=== PATIENT | female | born 1980 | race Caucasian/White ===

== ENCOUNTER 2020-08-31 10:01 | Observation (INO) | payer OTHER, SELFPAY ==
[~2020-08-31] VITALS: Ht 162.6 cm; Wt 93.4 kg
[2020-08-31 10:01] VITALS: BP_SYST 137
--- NOTE | 2020-08-31 10:01 | NUR ---
BROUGHT IN BY [facility] AND [facility]ACED IN BED #7, TRIAGED. REPORT GIVEN TO DIEGO
--- NOTE | 2020-08-31 10:05 | NUR ---
Pt bib EMS from [place] for blood transfusion. Per lab reports pt's Hgb 6.6. Pt reports feeling weak and fatigue and mild SOB. V/S stable, no distress noted.
--- NOTE | 2020-08-31 10:10 | NUR ---
ER Dr. Jalloh at bedside examining patient.
--- NOTE | 2020-08-31 10:20 | NUR ---
# 20 gauge angiocath placed to LAC. Use of asceptic technique. Opsite placed over site. Blood return noted. Blood for lab drawn from site. Flushed with 10 cc of normal saline. No evidence of infiltration noted. Patient tolerated well.
[2020-08-31] MEDS ORDERED: NACL 0.9% 1,000 ML IV ONE (10:30)
[2020-08-31 10:38] LABS: BASOPHILS % (AUTO) 0.6 % (0.0-2.0); EOSINOPHILS # (AUTO) 0.1 K/uL (0.0-0.4); EOSINOPHILS % (AUTO) 1.2 % (0.0-4.0); HEMATOCRIT 22.5 % (36-48); LYMPHOCYTES % (AUTO) 15.2 % (20.5-51.5); MEAN CORPUSCULAR HEMOGLOBIN 18 pg (27-31); MEAN CORPUSCULAR HGB CONC 29 % (32-36); MEAN CORPUSCULAR VOLUME 63 fL (79.0-98.0); MONOCYTES # (AUTO) 0.3 K/uL (0.0-1.0); MONOCYTES % (AUTO) 4.7 % (1.7-9.3); NEUTROPHILS # (AUTO) 5.2 K/uL (1.8-7.7); NEUTROPHILS % (AUTO) 78.3 % (40.0-70.0); PLATELET COUNT (AUTO) 168 K/uL (130-430); RED CELL DISTRIBUTION WIDTH 20.9 % (9.0-15.0); WHITE BLOOD COUNT (AUTO) 6.6 K/uL (4.8-10.8)
[2020-08-31 10:45] LABS: HEMOGLOBIN 6.5 g/dL (12.0-16.0)
[2020-08-31 10:59] LABS: CALCIUM 8.9 mg/dL (8.4-11.0); CREATININE 0.9 mg/dL (0.55-1.30); POTASSIUM 3.7 mmol/L (3.5-5.1)
[2020-08-31 11:03] LABS: INR 0.9 (0.8-1.2); PROTHROMBIN TIME 9.6 SECS (9.5-12.5)
[2020-08-31 11:05] LABS: ALBUMIN 3.7 g/dL (3.4-4.8); TOTAL BILIRUBIN 0.5 mg/dL (0.0-1.0)
[2020-08-31] MEDS ORDERED: PRO40 PO (11:19)
[2020-08-31] MEDS ORDERED: RISP0.5T5 PO (11:19)
[2020-08-31] MEDS ORDERED: LURA20TA PO (11:19)
[2020-08-31 11:20] LABS: BILIRUBIN,URINE NEGATIVE (NEGATIVE); BLOOD, URINE NEGATIVE (NEGATIVE); CLARITY/URINE CLEAR (CLEAR); COLOR,URINE YELLOW (YELLOW); GLUCOSE,URINE NEGATIVE (NEGATIVE); KETONES,URINE NEGATIVE (NEGATIVE); LEUKOCYTE ESTERASE ,URINE 1+ (NEGATIVE); NITRITE, URINE NEGATIVE (NEGATIVE); PROTEIN URINE NEGATIVE (NEGATIVE); UROBILINOGEN,URINE 0.2 (0.2-1.0)
--- NOTE | 2020-08-31 11:20 | NUR ---
Med rec and belongings list completed.
[2020-08-31 11:41] LABS: BACTERIA,URINE FEW /HPF (None Seen); MUCUS,URINE 1+ /LPF (None Seen); RBC,URINE 0-3 /HPF (0-3)
[2020-08-31] MEDS ORDERED: DIPHENHYDRAMINE HCL 12.5 MG/5 ML UDC NG ONE (11:45)
[2020-08-31] MEDS ORDERED: ACETAMINOPHEN 325 MG TABLET PO ONE (11:45)
[2020-08-31] MEDS ORDERED: LORATADINE 10 MG TABLET PO ONE (11:45)
--- NOTE | 2020-08-31 11:48 | NUR ---
Patient will be admitted to care of Dr. Fish. Admitted to med-surg unit. Will go to room 109A. Belongings list completed. Complete and up to date summary report printed. SBAR report to be given at bedside with opportunity for questions. IV site intact and patent.
--- NOTE | 2020-08-31 12:09 | NUR ---
admission notes rec patieny from er admitted with dx symptomatic anemia. awak rlaert with ivf infusing well on the l ac. no infiltration noted. denies pain but looking pale at this time. oriented with her surroundings at bedside. no sob noted. call light within reached.
[2020-08-31 12:12] VITALS: BP_SYST 119
[2020-08-31 12:13] VITALS: BP_SYST 119
[2020-08-31] MEDS ORDERED: FLU VACC QS2020-21(65UP)/PF 0.7 ML/SYRINGE I.M. PRN (12:30)
[2020-08-31] MEDS ORDERED: FLU VACC QS2020-21 (6 mos & up) 0.5 ML/SYRINGE I.M. PRN (12:30)
[2020-08-31 12:33] LABS: TOTAL IRON BIND. CAPACITY 536 ug/dL (250-450)
--- NOTE | 2020-08-31 13:33 | NUR ---
NURSE NOTE PATIENT TO HAVE US PELVIC, PROVIDED PATIENT WITH WATER AND ADVISED TO NOT VOID UNTIL AFTER PROCEDURE, PATIENT VERBALIZED UNDERSTANDING, NO QUESTIONS ASKED
--- NOTE | 2020-08-31 14:33 | NUR ---
nurse note us tech bedside, patient denies any pain or discomfort, bed in low and locked position, call light within reach
[2020-08-31 16:00] VITALS: BP_SYST 121
--- NOTE | 2020-08-31 16:05 | NUR ---
BT INITIATION: Consent signed agreeing to administration of blood. Blood has been type and crossmatched. Blood sent from blood bank. Information on unit of blood checked against patient wristband at bedside by two nurses. All information matches. Patient or responsible alliance party informed of potential complications associated with blood transfusion. Informed of possible transfusion reaction symptoms. Aware of need to notify nurse at once of itching, shortness of breath, flushing, feeling of impending doom, or other symptoms not previously present. Vital signs taken within 5 minutes prior to initiation of transfusion. RN will remain with patient for first 15 minutes of transfusion at which time vital signs will be re-assessed.
--- NOTE | 2020-08-31 16:20 | NUR ---
nurse note patient denies any shortness of breath or discomfort, obtained vs, increased blood transfusion to 150ml/hr. bed in low and locked position call light within reach,
--- NOTE | 2020-08-31 19:10 | NUR ---
closing note provided SBAR to night RN, patient in bed, respirations even, non labored, blood transfusion infusing as ordered, bed in low and locked position, call light within reach, endorsed care to night RN
[2020-08-31 20:00] VITALS: BP_SYST 129
--- NOTE | 2020-08-31 20:00 | NUR ---
Opening notes/Blood transfusion completed Pt AAOx4, VSS, afebrile. 1 unit of blood transfusion completed. No s/s transfusion rxn noted. L.AC clear and patent. Call light within reach. HS snacks provided per pt request. To continue IVF. Call light within reach. To monitor.
[2020-09-01 00:24] VITALS: BP_SYST 121
--- NOTE | 2020-09-01 01:20 | NUR ---
Rounds Pt asleep, no s/s distress noted. IV L. AC saline locked clear and patent. Call light within reach. Safety maintained. To monitor.
--- NOTE | 2020-09-01 05:55 | NUR ---
Closing notes Pt asleep, easily awakens, no s/s distress noted. IV saline lock L.AC clear and patent. Call light within reach. Bed low, locked, siderails up x2. To endorse to AM nurse.
--- NOTE | 2020-09-01 06:22 | NUR ---
MD deborah cabrera.
--- NOTE | 2020-09-01 06:58 | NUR ---
CONSULTATION PAGED/CALLED Reason for Consultation: PSYCHIATRIC ADMISSION Person Who was Notified: MIGUEL Consulting Physician: NEGIN HARRIS Pile Driving Technician Specialty: Ordering Physician: BEHZAD LARSEN
[2020-09-01 07:06] LABS: FOLATE (FOLIC ACID) 8.6 ng/mL (>3.0)
[2020-09-01 07:39] LABS: BASOPHILS % (AUTO) 0.4 % (0.0-2.0); EOSINOPHILS # (AUTO) 0.1 K/uL (0.0-0.4); EOSINOPHILS % (AUTO) 1.5 % (0.0-4.0); HEMATOCRIT 26.2 % (36-48); HEMOGLOBIN 7.8 g/dL (12.0-16.0); LYMPHOCYTES # (AUTO) 1.2 K/uL (1.0-5.5); LYMPHOCYTES % (AUTO) 18.4 % (20.5-51.5); MEAN CORPUSCULAR HEMOGLOBIN 20 pg (27-31); MEAN CORPUSCULAR HGB CONC 30 % (32-36); MEAN CORPUSCULAR VOLUME 67 fL (79.0-98.0); MONOCYTES # (AUTO) 0.3 K/uL (0.0-1.0); MONOCYTES % (AUTO) 4.9 % (1.7-9.3); NEUTROPHILS # (AUTO) 4.8 K/uL (1.8-7.7); NEUTROPHILS % (AUTO) 74.8 % (40.0-70.0); PLATELET COUNT (AUTO) 159 K/uL (130-430); RED BLOOD CELL COUNT(AUTO) 3.92 MIL/uL (4.2-6.2); RED CELL DISTRIBUTION WIDTH 26.2 % (9.0-15.0); WHITE BLOOD COUNT (AUTO) 6.4 K/uL (4.8-10.8)
--- NOTE | 2020-09-01 07:45 | NUR ---
OPENING NOTES: RECEIVED REPORT FROM CASEWORK SUPERVISOR NURSE. PATIENT IS AWAKE, ALERT LAYING DOWN IN BED. PATIENT IS TOLERATING OXYGEN ON ROOM AIR WITH NO SIGNS OF DISTRESS OR SHORTNESS OF BREATH NOTED. IV LINE PATENT AND INTACT WITH NO SIGNS OF INFILTRATION NOTED. DENIES ANY PAIN AT THE MOMENT. PATIENT IN STABLE CONDITION. SAFETY, FALL, AND ASPIRATION PRECAUTIONS ARE IN PLACE. BED LOCKED IN LOWEST POSITION WITH CALL LIGHT IN REACH. WILL CONTINUE TO MONITOR PATIENT FOR ANY CHANGES.
[2020-09-01 08:00] VITALS: BP_SYST 121
[2020-09-01] MEDS ORDERED: PANTOPRAZOLE SODIUM 40 MG TAB PO SCH (09:00)
[2020-09-01 11:23] VITALS: BP_SYST 118
[2020-09-01 12:00] VITALS: BP_SYST 120
--- NOTE | 2020-09-01 12:10 | NUR ---
Psych transfer: CONCRETE PAVING SUPERVISOR received a call from Dr. Espinosa wanting to transfer/admit pt back to [facility]. Pt is currently on a 1790 hold for danger to self. CONCRETE PAVING SUPERVISOR phoned [facility] Christina, Mickey @ [phone]; clinicals faxed + hold for review. SS will follow up. Addendum: 09/01/20 at 1354 by Jean Pierre Moody CONCRETE PAVING SUPERVISOR Pt accepted at [facility], admit MD: Dr. Pizano and patient is to go to the "front gate". Information received from Christina Presley. [facility] pickle sorter @ 03:30PM, chart in unit. Guillermo SPAULDING aware.
--- NOTE | 2020-09-01 13:10 | NUR ---
SPOKE TO RACHEL JOLLEY AUSTIN ([phone]) AND GAVE REPORT. MADE AWARE
[2020-09-01 14:19] VITALS: BP_SYST 120
--- NOTE | 2020-09-01 15:40 | NUR ---
D/C Patient Patient given medication reconciliation form and D/C instructions. Exit Care provided. Patient verbalized understanding. MD discussed with patient the results and treatment provided. Ambulatory with steady gait for discharge to [facility] ([phone]) accompanied by 2 male medic personnel of [facility] ambulance. Patient in stable condition, ID band removed. IV catheter removed, intact and dressing applied, no active bleeding. Patient educated on pain management. All belongings sent with patient.
== END 2020-09-01 15:40 ==
LOC: SED 10:01 → SMU 11:01 → INTOOBSV 11:01 → SMU 11:50
PROVIDERS: ADMIT Internal Medicine Hospice and Palliative Medicine; ATTEND Internal Medicine Hospice and Palliative Medicine
DX: D64.9 Anemia, unspecified (principal); Z20.822 Contact with and (suspected) exposure to COVID-19; I10 Essential (primary) hypertension; E78.5 Hyperlipidemia, unspecified; K21.9 Gastro-esophageal reflux disease without esophagitis; N92.1 Excessive and frequent menstruation with irregular cycle; N92.0 Excessive and frequent menstruation with regular cycle; F41.8 Other specified anxiety disorders; F31.30 Bipolar disorder, current episode depressed, mild or moderate severity, unspecified; Z79.899 Other long term (current) drug therapy; Z91.5 Personal history of self-harm; Z23 Encounter for immunization
CPT/HCPCS: 36415 ×2; 36430; 76830; 76857; 80053; 81000; 82607; 82746; 83540; 83550; 85025 ×2; 85610; 85730; 86886; 86900; 86901; 86920; 87081; 87086; 87426; 90686; 96360; 99285; G0008; G0378 ×2; P9021